=== PATIENT | female | born 1990 | race Caucasian/White ===

== ENCOUNTER 2019-12-26 15:11 | Day surgery (SDC) | payer BC, OTHER ==
[~2019-12-26] VITALS: Ht 167.6 cm; Wt 74.4 kg
[2019-12-26] MEDS ORDERED: LACTATED RINGERS 1,000 ML IV SCH (15:25)
[2019-12-26] MEDS ORDERED: prenatal PO (15:30)
[2019-12-26 15:39] VITALS: BP 109/76
[2019-12-26 16:03] LABS: BASOPHILS # (AUTO) 0.02 x10^3/uL (0-0.1); BASOPHILS % (AUTO) 0 % (0-1); EOSINOPHILS # (AUTO) 0.12 x10^3/uL (0-0.4); EOSINOPHILS % (AUTO) 2 % (1-7); LYMPHOCYTES # (AUTO) 2.39 x10^3/uL (1-3.4); LYMPHOCYTES % (AUTO) 40 % (22-44); MD NO; MEAN CORPUSCULAR HEMOGLOBIN 31.8 pg (27.0-34.8); MEAN CORPUSCULAR VOLUME 93.4 fL (80-100); MEAN PLATELET VOLUME 8.1 fL (7.4-10.4); MONOCYTES # (AUTO) 0.29 x10^3/uL (0.2-0.8); MONOCYTES % (AUTO) 5 % (2-9); NEUTROPHILS % (AUTO) 53 % (42-75); PLATELET COUNT 237 x10^3/uL (130-400); RED CELL DISTRIBUTION WIDTH 12.6 % (9.6-15.2)
[2019-12-26] MEDS ORDERED: METHYLERGONOVINE 0.2 MG/ML IM ONE (16:39)
[2019-12-26] MEDS ORDERED: MISOPROSTOL 200 MCG TABLET ONE (16:39)
[2019-12-26] MEDS ORDERED: OXYTOCIN 10 UNITS/ML, 1ML ONE (16:39)
[2019-12-26] MEDS ORDERED: SILVER NITRATE STICK TP ONE (16:39)
[2019-12-26] MEDS ORDERED: FENTANYL PF 100 MCG/2ML ONE (17:59)
[2019-12-26] MEDS ORDERED: MIDAZOLAM 1 MG/ML, 2ML ONE (17:59)
[2019-12-26] MEDS ORDERED: GLYCOPYRROLATE 0.2MG/1ML, 5ML ONE (18:04)
[2019-12-26] MEDS ORDERED: KETOROLAC 30 MG/1 ML ONE (18:04)
[2019-12-26] MEDS ORDERED: PROPOFOL 10 MG/ML, 20ML ONE (18:04)
[2019-12-26] MEDS ORDERED: ONDANSETRON 2MG/ML, 2ML ONE (18:04)
[2019-12-26] MEDS ORDERED: FENTANYL PF 100 MCG/2ML IV PRN (19:00)
[2019-12-26] MEDS ORDERED: HYDROmorphone 2 MG/ML, 1ML IVPush PRN (19:00)
[2019-12-26] MEDS ORDERED: ACETAMINOPHEN 325 MG TABLET PO PRN (19:00)
[2019-12-26] MEDS ORDERED: MEPERIDINE/PF 25MG/ML,1ML IVPush PRN (19:00)
[2019-12-26] MEDS ORDERED: PROMETHAZINE 12.5 MG SUPP PR PRN (19:00)
== END 2019-12-26 21:47 | disposition home or self-care (01) ==
LOC: OR 15:11 → 4NE 19:45 → OR 21:47
PROVIDERS: ATTEND Obstetrics & Gynecology
DX: O73.0 Retained placenta without hemorrhage (principal); Z37.0 Single live birth; Z83.3 Family history of diabetes mellitus; Z82.49 Family history of ischemic heart disease and other diseases of the circulatory system
CPT/HCPCS: 36415; 59160; 76998; 85025; 86850; 86900; 88305; J1885; J2250; J2405; J2704; J3010; J7120; G0378; J2210; J2590